=== PATIENT | male | born 1970 | race Caucasian/White ===

== ENCOUNTER → 2018-03-27 08:33 | Outpatient (CLI) | payer OTHER, SELFPAY ==
[2018-03-27 09:14] LABS: Alanine Aminotransferase 64 IU/L (21-72); Albumin 4.4 g/dL (3.5-5.0); Albumin Globulin Ratio 1.7 (1.0-2.8); Alkaline Phosphatase 105 U/L (38-126); Aspartate Aminotransferase 43 IU/L (17-59); BUN Creatinine Ratio 18.6 (6-22); Bilirubin Total 0.6 mg/dL (0.2-1.3); Blood Urea Nitrogen 13 mg/dL (9-20); Calcium 9.2 mg/dL (8.4-10.2); Carbon Dioxide 28 mmol/L (22-32); Chloride 103 mmol/L (98-107); Cholesterol 149 mg/dL (140-199); Estimated Glomerular Filt Rate > 60.0 mL/min (>60); Globulin 2.6 g/dL (1.7-4.1); Glucose 102 mg/dL (70-100); HDL Cholesterol 41 mg/dL (40-60); HEMOLYSIS < 15 (0-50); LDL Cholesterol Calculated 85 mg/dL (<100); Potassium 4.5 mmol/L (3.4-5.1); Sodium 141 mmol/L (137-145); Triglycerides 113 mg/dL (35-150)
[2018-03-27 10:05] LABS: Creatinine Urine Random 114.4 mg/dL
[2018-03-27 10:10] LABS: Microalbumi Creatinin Ratio Ur 5.2 ug/mg CR (<30); Microalbumin Urine Random 0.6 mg/dL (0-1.6)
== END ==
PROVIDERS: Physician Assistant; Visit Provider Physician Assistant
DX: I10 Essential (primary) hypertension (principal)
CPT/HCPCS: 36415; 80053; 80061; 82043; 82570

== ENCOUNTER → 2019-04-26 07:11 | Outpatient (CLI) | payer OTHER, SELFPAY ==
[2019-04-26 08:29] LABS: Alanine Aminotransferase 59 IU/L (<50); Albumin 4.4 g/dL (3.5-5.0); Albumin Globulin Ratio 1.6 (1.0-2.8); Alkaline Phosphatase 120 U/L (38-126); Aspartate Aminotransferase 41 IU/L (17-59); BUN Creatinine Ratio 17.1 (6-22); Bilirubin Total 0.6 mg/dL (0.2-1.3); Blood Urea Nitrogen 12 mg/dL (9-20); Calcium 9.1 mg/dL (8.4-10.2); Carbon Dioxide 30 mmol/L (22-32); Chloride 101 mmol/L (98-107); Cholesterol 160 mg/dL (140-199); Estimated Glomerular Filt Rate > 60.0 mL/min (>60); Globulin 2.8 g/dL (1.7-4.1); Glucose 107 mg/dL (70-100); HDL Cholesterol 36 mg/dL (40-60); HEMOLYSIS < 15 (0-50); LDL Cholesterol Calculated 82 mg/dL (<100); Potassium 4.3 mmol/L (3.4-5.1); Sodium 139 mmol/L (137-145); Total Protein 7.2 g/dL (6.3-8.2); Triglycerides 208 mg/dL (35-150)
[2019-04-26 09:01] LABS: Creatinine Urine Random 138.8 mg/dL
[2019-04-26 09:06] LABS: Microalbumi Creatinin Ratio Ur 14.4 ug/mg CR (<30)
== END ==
PROVIDERS: PCP Physician Assistant; Referring Provider Physician Assistant; Visit Provider Physician Assistant
DX: E78.5 Hyperlipidemia, unspecified (principal); I10 Essential (primary) hypertension
CPT/HCPCS: 36415; 80053; 80061; 82043; 82570

== ENCOUNTER → 2019-12-01 11:42 | Outpatient (CLI) | payer OTHER, SELFPAY ==
[2019-12-01 13:36] LABS: Alanine Aminotransferase 40 IU/L (<50); Albumin 4.2 g/dL (3.5-5.0); Albumin Globulin Ratio 1.4 (1.0-2.8); Alkaline Phosphatase 140 U/L (38-126); Aspartate Aminotransferase 33 IU/L (17-59); BUN Creatinine Ratio 15.9 (6-22); Bilirubin Total 0.5 mg/dL (0.2-1.3); Blood Urea Nitrogen 11 mg/dL (9-20); Calcium 8.8 mg/dL (8.4-10.2); Carbon Dioxide 28 mmol/L (22-32); Chloride 103 mmol/L (98-107); Cholesterol 132 mg/dL (140-199); Estimated Glomerular Filt Rate > 60.0 mL/min (>60); Globulin 2.9 g/dL (1.7-4.1); Glucose 97 mg/dL (70-100); HDL Cholesterol 32 mg/dL (40-60); HEMOLYSIS 20 (0-50); LDL Cholesterol Calculated 63 mg/dL (<100); Sodium 139 mmol/L (137-145); Total Protein 7.1 g/dL (6.3-8.2); Triglycerides 187 mg/dL (35-150)
== END ==
PROVIDERS: PCP Registered Nurse; Referring Provider Registered Nurse; Visit Provider Registered Nurse
DX: E78.5 Hyperlipidemia, unspecified (principal); I10 Essential (primary) hypertension
CPT/HCPCS: 36415; 80053; 80061

== ENCOUNTER 2019-12-04 17:00 | Emergency (ER) | payer OTHER, SELFPAY ==
[2019-12-04 17:04] VITALS: BP 194/77; PULSE 116; RESP 24; TEMP 37.2; O2SAT 97
--- NOTE | 2019-12-04 18:20 | ED.SKABFB ---
HPI - Skin/Abscess/Foreign Bdy General Chief complaint: Skin/Abscess/Foreign Body Stated complaint: CYST INFECTION ON BUTTOCKS Time Seen by Provider: 12/04/19 18:03 Source: patient Mode of arrival: Ambulatory Limitations: no limitations History of Present Illness HPI narrative: 49-year-old male with prior history of multiple pilonidal cysts needing both incision and drainages and surgical excision here for evaluation of a couple days of worsening pain in the same areas where he has had these issues in the past. He states that it feels just like his prior issues of pilonidal cyst. He went to his primary doctor who told him that they would not drain this cyst in the office and advised that he go to the walk-in clinic. He then came to the emergency department. Denies fever. Has had some chills. Has had redness spread down the back of his left leg. No problems with bowel movements. No urinary symptoms. Related Data Home Medications Medication Instructions Recorded Confirmed multivitamin 1 tab PO QAM 04/17/18 12/04/19 Previous Rx's Medication Instructions Recorded atorvastatin 40 mg tablet 40 mg PO HS #90 tab 11/12/19 metoprolol succinate 25 mg 25 mg PO QDAY #90 tab 11/12/19 tablet,extended release 24 hr clindamycin HCl 300 mg PO Q6H 10 Days #40 cap 12/04/19 hydrocodone-acetaminophen [Leonard] 1 tab PO Q4-6H PRN #10 tab 12/04/19 Allergies Allergy/AdvReac Type Severity Reaction Status Date / Time Penicillins [PENICILLINS] Allergy Severe ALMOST Verified 12/04/19 16:31 Review of Systems Constitutional Constitutional: Reports fever(s) (Subjective) Cardiovascular Cardiovascular: Denies chest pain and Denies dyspnea Respiratory Respiratory: Denies dyspnea Gastrointestinal Gastrointestinal: Denies change in bowel habits Genitourinary Genitourinary: Denies dysuria Genitourinary: Denies dysuria Integumentary/Breasts Comments: Cyst over buttocks Neurologic Neurologic: Denies behavioral changes and Denies confusion Psychiatric Psychiatric: Denies behavioral changes and Denies confusion Patient History Medical History (Updated 12/05/19 @ 00:51 by Simon Shaikh DO) Essential (primary) hypertension (Inactive) Hyperlipidemia (Inactive) Obesity (BMI 30-39.9) (Inactive) Obstructive sleep apnea (Inactive) Pneumonia (Acute) Screening for malignant neoplasm of colon (Inactive) Social History Smoking Status: Current every day smoker Tobacco: How many years used: 36 quit status: considering quitting second hand exposure: Yes (yes, my girlfriend and a lot of people I know smoke.) alcohol intake: current (a beer every once in a while. I have a couple of drinks of vodka and 7/up every night.) substance use type: does not use Smoking Status: Current every day smoker Exam Initial Vital Signs Initial Vital Signs: Vital Signs Temperature 98.9 F 12/04/19 17:04 Pulse Rate 116 H 12/04/19 17:04 Respiratory Rate 24 12/04/19 17:04 Blood Pressure 194/77 H 12/04/19 17:04 Pulse Oximetry 97 12/04/19 17:04 Const General: cooperative Limitations: mental status not altered HENMT Head: normal to inspection and normocephalic Resp Effort & Inspection: normal respiratory effort Cardio Rate: regular rate GI Inspection: non-distended Skin Other: Patient with a large area of induration both superior and left lateral portion of the top of the intergluteal cleft. Has redness and induration spreading down the left posterior thigh. Extrem General: normal to inspection and capillary refill normal Psych Appearance: grossly normal and well kempt Procedures Abscess I/D I&D #1: Site: other (Pilonidal) Side (if applicable): left Local Anesthetic: lidocaine 1% and with epi Amount of anesthesia used (mL): 10 Technique: incised with #11 blade Irrigation: No Packing used?: none Complications: pain Course Orders Ordered: ED Orders 12/04/19 18:20 CT pelvis w con Stat 12/04/19 18:30 Basic Metabolic Panel Stat Complete Blood Count AUTO DIFF Stat Discontinued Medications Hydrocodone Bitart/Acetaminophen (Vicodin 5/325 Prepack) 1 bottle MISC SEEINSTR ONE Stop: 12/04/19 20:09 Last Admin: 12/04/19 20:24 Dose: 1 bottle Documented by: DANN Sodium Chloride (Normal Saline 0.9%) 1,000 mls @ 1,000 mls/hr IV BOLUS ONE Stop: 12/04/19 19:19 Last Infusion: 12/04/19 20:07 Dose: 0 mls/hr Documented by: Admin: 12/04/19 18:53 Dose: 1,000 mls/hr Documented by: DEANA Clindamycin Phosphate (Cleocin) 900 mg in 50 mls @ 50 mls/hr IV NOW ONE Stop: 12/04/19 19:21 Last Infusion: 12/04/19 20:08 Dose: 0 mls/hr Documented by: Admin: 12/04/19 18:52 Dose: 50 mls/hr Documented by: DEANA Lidocaine/Epinephrine (Xylocaine 1% W/Epi) 1 ml SUBCUT NOW ONE Stop: 12/04/19 19:39 Last Admin: 12/04/19 20:24 Dose: 1 ml Documented by: DANN Vital Signs Vital signs: Vital Signs - 8 hr 12/04/19 17:04 12/04/19 20:28 Temperature 98.9 F Pulse Rate 116 H 84 Respiratory Rate 24 20 Blood Pressure 194/77 H 146/76 H Pulse Oximetry 97 98 MDM - Skin/Abscess/Foreign Bdy Lab Data Attestation: I reviewed the patient's lab results. Result diagrams: 12/04/19 18:30 12/04/19 18:30 Labs: Lab Results 12/04/19 12/04/19 Range/Units 18:30 18:30 WBC 9.5 (4.5-11.0) X10^3/uL RBC 5.12 (4.5-5.9) X10^6/uL Hgb 15.2 (13.5-17.5) g/dL Hct 44.7 (41-53) % MCV 87.2 (80-100) fL MCH 29.6 (26-34) PG MCHC 34.0 (30-36) % RDW 13.7 (11.6-14.8) % Plt Count 241 (150-400) X10^3/uL Neut % (Auto) 69.8 (50-75) % Lymph % (Auto) 18.9 L (25-40) % Deuel % (Auto) 8.4 (3-14) % Eos % (Auto) 2.1 (2-4) % Baso % (Auto) 0.8 (0-2) % Neut # (Auto) 6600 (1441-0325) /uL Lymph # (Auto) 1800 (4233-6148) /uL Deuel # (Auto) 800 (0-900) /uL Eos # (Auto) 200 (0-450) /uL Baso # (Auto) 100 (0-100) /uL Sodium 139 (137-145) mmol/L Potassium 3.7 (3.4-5.1) mmol/L Chloride 101 (98-107) mmol/L Carbon Dioxide 29 (22-32) mmol/L BUN 12 (9-20) mg/dL Creatinine 0.79 (0.66-1.25) mg/dL Estimated GFR > 60.0 (>60) mL/min BUN/Creatinine Ratio 15.2 (6-22) Glucose 100 (70-100) mg/dL Calcium 9.0 (8.4-10.2) mg/dL Imaging Data CT pelvis: Radiologist's Impression: [address] [address] [address] Scan Report Signed Patient: Harshil Butler R#: [id number] : 1970Acct:[id number] Age/Sex: 49 / MDate of Service: 12/04/19 Loc: ED Accession Number: [id number] Procedure: CT pelvis w con Ordering Provider: Simon Shaikh D.O. PROCEDURE: CT PELVIS W CON INDICATIONS: eval for perianal/rectal abscess TECHNIQUE: After the administration of intravenous contrast, 5 mm thick sections acquired from the iliac crests to the symphysis. 5 mm coronal and sagittal reformats were acquired. For radiation dose reduction, the following was used: automated exposure control, adjustment of mA and/or kV according to patient size. COMPARISON: None. FINDINGS: Image quality: Excellent. Peritoneum and bowel: Bowel loops demonstrate normal wall thickness and caliber. No free fluid or air. Genitourinary: Bladder wall thickness is normal. Nodes and vessels: No iliac, pelvic, or inguinal adenopathy by size criteria. Iliac vessels demonstrate normal size and enhancement. Bones: No suspicious bony lesions. Miscellaneous: There is a 1.6 x 3.2 cm complex subcutaneous fluid collection in the medial aspect of the left buttock, consistent with a small phlegmon or abscess. There is no drainable fluid collection. There is soft tissue stranding in the left buttock consistent with cellulitis. A small 0.9 x 1.9 cm subcutaneous nodule is seen in the lateral aspect of the left thigh. Mild stranding is present in the same area. A 1.4 x 2.4 cm subcutaneous nodule is seen in the right buttock, which could represent a pilonidal cyst, phlegmon or abscess. There are bilateral fat containing inguinal hernias. IMPRESSION: 1. A 1.6 x 3.2 cm phlegmon or abscess in the left buttock. 2. Cellulitis of the left buttock. 3. A small 0.9 x 1.9 cm subcutaneous nodule is seen in the lateral aspect of the left thigh. Mild stranding is present in the same area. This could represent another small phlegmon or early abscess. 4. A 1.4 x 2.4 cm subcutaneous nodule is seen in the right buttock, most likely representimg a pilonidal cyst. No soft tissue stranding in the area. 5. Bilateral fat containing inguinal hernias. Dictated by: Feliberto Macias M.D. on 12/04/2019 at 19:05 Approved by: Feliberto Macias M.D. on 12/04/2019 at 19:14 [facility] Narrative Medical decision making narrative: The CT scan does not show any signs of a deeper perirectal/perianal infection. His physical exam is consistent with a pilonidal cyst and cellulitis given the redness around the area. An incision and drainage was made in the area. He does have a consult already placed by his primary doctor to General surgery. He was given the phone number for the general surgeons with his discharge paperwork. Was given antibiotics. Will send home with antibiotics. He was given care instructions and return precautions. He expressed understanding and agreement. Discharge Plan Departure Patient Disposition: Home Clinical Impression: Infected pilonidal cyst Discharge Date/Time: 12/04/19 20:28 Instructions: DI for Pilonidal Cyst Drainage or Removal Activity Restrictions/Additional Instructions: Expect quite a bit of oozing from the area. This may require you to change the bandage on frequent basis. You can shower like normal. Take the pain medications as needed. Start taking the antibiotics tomorrow morning. Recommend that you contact the [facility] at [phone]. Also contact your primary provider for follow-up. Prescriptions: New hydrocodone-acetaminophen [Leonard] 5-325 mg tablet 1 tab PO Q4-6H PRN (Reason: pain) Qty: 10 RF: 0 clindamycin HCl 300 mg capsule 300 mg PO Q6H 10 Days Qty: 40 RF: 0 No Action multivitamin tablet 1 tab PO QAM RF: 0 atorvastatin 40 mg tablet 40 mg PO HS Qty: 90 RF: 1 metoprolol succinate [Toprol XL] 25 mg tablet extended release 24 hr 25 mg PO QDAY Qty: 90 RF: 1 Referrals: Jese Joseph ARNP [Primary Care Provider] -
[2019-12-04 18:41] LABS: Add Manual Diff / Slide Review NO; Basophils Absolute Auto 100 /uL (0-100); Basophils Percent Auto 0.8 % (0-2); Eosinophils Absolute Auto 200 /uL (0-450); Eosinophils Percent Auto 2.1 % (2-4); Hematocrit 44.7 % (41-53); Hemoglobin 15.2 g/dL (13.5-17.5); Lymphocytes Absolute Auto 1800 /uL (1100-4500); Lymphocytes Percent Auto 18.9 % (25-40); Mean Corpuscular Hemoglobin 29.6 PG (26-34); Mean Corpuscular Volume 87.2 fL (80-100); Monocytes Absolute Auto 800 /uL (0-900); Monocytes Percent Auto 8.4 % (3-14); Neutrophils Absolute Auto 6600 /uL (1500-7000); Neutrophils Percent Auto 69.8 % (50-75); Platelet Count 241 X10^3/uL (150-400); Red Blood Cell Count 5.12 X10^6/uL (4.5-5.9); Red Cell Distribution Width 13.7 % (11.6-14.8); White Blood Cell Count 9.5 X10^3/uL (4.5-11.0)
[2019-12-04] MEDS: CLINDAMYCIN 900 MG/50 ML PIGGYBACK 50 MG IV (18:52)
[2019-12-04 18:53] LABS: BUN Creatinine Ratio 15.2 (6-22); Blood Urea Nitrogen 12 mg/dL (9-20); Carbon Dioxide 29 mmol/L (22-32); Chloride 101 mmol/L (98-107); Estimated Glomerular Filt Rate > 60.0 mL/min (>60); Glucose 100 mg/dL (70-100); HEMOLYSIS 22 (0-50); Potassium 3.7 mmol/L (3.4-5.1); Sodium 139 mmol/L (137-145)
[2019-12-04] MEDS: SODIUM CHLORIDE 0.9% 1,000 ML 1000 ML IV (18:53)
[2019-12-04] MEDS: LIDOCAINE 1% W/EPI 1 ML SUBCUT (20:24)
[2019-12-04] MEDS: HYDROCODONE/ACET 5/325 PREPACK 1 BOTTLE MISC (20:24)
[2019-12-04 20:28] VITALS: BP 146/76; PULSE 84; RESP 20; O2SAT 98
== END 2019-12-04 20:28 | disposition home or self-care (01) ==
PROVIDERS: Emergency Provider Emergency Medicine; PCP Registered Nurse; Referring Provider Registered Nurse
DX: L05.91 Pilonidal cyst without abscess (principal); R50.9 Fever, unspecified
CPT/HCPCS: 10060; 36415; 72193; 80048; 85025; 96365; 99284

== ENCOUNTER → 2020-05-10 10:51 | Outpatient (CLI) | payer OTHER, SELFPAY ==
[2020-05-10 12:57] LABS: Cholesterol 167 mg/dL (140-199); HDL Cholesterol 33 mg/dL (40-60); LDL Cholesterol Calculated 89 mg/dL (<100); Triglycerides 227 mg/dL (35-150)
== END ==
PROVIDERS: PCP Registered Nurse; Referring Provider Registered Nurse; Visit Provider Registered Nurse
DX: E78.5 Hyperlipidemia, unspecified (principal)
CPT/HCPCS: 36415; 80061

== ENCOUNTER → 2020-12-06 08:52 | Outpatient (CLI) | payer OTHER, SELFPAY ==
[2020-12-06 10:42] LABS: Alanine Aminotransferase 42 IU/L (<50); Albumin 4.2 g/dL (3.5-5.0); Albumin Globulin Ratio 1.4 (1.0-2.8); Alkaline Phosphatase 116 U/L (38-126); Aspartate Aminotransferase 35 IU/L (17-59); BUN Creatinine Ratio 16.4 (6-22); Bilirubin Total 0.6 mg/dL (0.2-1.3); Blood Urea Nitrogen 11 mg/dL (9-20); Carbon Dioxide 31 mmol/L (22-32); Chloride 105 mmol/L (98-107); Cholesterol 153 mg/dL (140-199); Estimated Glomerular Filt Rate > 60.0 mL/min (>60); Globulin 2.9 g/dL (1.7-4.1); Glucose 109 mg/dL (70-100); HDL Cholesterol 39 mg/dL (40-60); HEMOLYSIS 16 (0-50); LDL Cholesterol Calculated 90 mg/dL (<100); Potassium 4.2 mmol/L (3.4-5.1); Sodium 140 mmol/L (137-145); Total Protein 7.1 g/dL (6.3-8.2); Triglycerides 119 mg/dL (35-150)
== END ==
PROVIDERS: PCP Registered Nurse; Referring Provider Registered Nurse; Visit Provider Registered Nurse
DX: I10 Essential (primary) hypertension (principal); E78.5 Hyperlipidemia, unspecified
CPT/HCPCS: 36415; 80053; 80061

== ENCOUNTER → 2021-05-02 12:26 | Outpatient (CLI) | payer OTHER, SELFPAY ==
--- NOTE | 2021-05-02 12:27 | DI.RAD.S_ITS ---
PROCEDURE: XR CHEST 2V INDICATIONS: Coughing TECHNIQUE: 2 views of the chest were acquired. COMPARISON: None. FINDINGS: Surgical changes and devices: None. Lungs and pleura: Lungs are clear. No pleural effusions or pneumothorax. Mediastinum: Mediastinal contours are normal. Heart size is normal. Bones and chest wall: No suspicious bony abnormalities. Soft tissues appear unremarkable. IMPRESSION: Normal two view chest x-ray Approved by: Juni Nguyen M.D. on 05/02/2021 at 13:02
[2021-05-02 14:28] LABS: Alanine Aminotransferase 49 IU/L (<50); Albumin 4.2 g/dL (3.5-5.0); Albumin Globulin Ratio 1.6 (1.0-2.8); Alkaline Phosphatase 113 U/L (38-126); Aspartate Aminotransferase 41 IU/L (17-59); BUN Creatinine Ratio 11.4 (6-22); Bilirubin Total 0.8 mg/dL (0.2-1.3); Blood Urea Nitrogen 8 mg/dL (9-20); Calcium 9.2 mg/dL (8.4-10.2); Carbon Dioxide 31 mmol/L (22-32); Chloride 104 mmol/L (98-107); Estimated Glomerular Filt Rate > 60.0 mL/min (>60); Globulin 2.7 g/dL (1.7-4.1); Glucose 120 mg/dL (70-100); HEMOLYSIS < 15 (0-50); Potassium 3.9 mmol/L (3.4-5.1); Sodium 138 mmol/L (137-145); Total Protein 6.9 g/dL (6.3-8.2)
== END ==
PROVIDERS: PCP Registered Nurse; Referring Provider Registered Nurse; Visit Provider Registered Nurse
DX: F17.200 Nicotine dependence, unspecified, uncomplicated (principal); R05.3 Chronic cough; I10 Essential (primary) hypertension
CPT/HCPCS: 36415; 71046; 80053

== ENCOUNTER → 2021-09-05 12:05 | Outpatient (CLI) | payer OTHER, SELFPAY ==
[2021-09-05 12:48] LABS: Creatinine Urine Random 151.7 mg/dL
[2021-09-05 12:53] LABS: Microalbumi Creatinin Ratio Ur 13.1 ug/mg CR (<30)
== END ==
PROVIDERS: PCP Pediatrics; Referring Provider Pediatrics; Visit Provider Pediatrics
DX: I10 Essential (primary) hypertension (principal)
CPT/HCPCS: 82043; 82570

== ENCOUNTER → 2022-06-26 11:00 | Outpatient (CLI) | payer OTHER, SELFPAY ==
[2022-06-26 11:30] LABS: Alanine Aminotransferase 59 IU/L (<50); Albumin 4.2 g/dL (3.5-5.0); Albumin Globulin Ratio 1.5 (1.0-2.8); Alkaline Phosphatase 108 U/L (38-126); Aspartate Aminotransferase 44 IU/L (17-59); Bilirubin Total 0.7 mg/dL (0.2-1.3); Blood Urea Nitrogen 9 mg/dL (9-20); Carbon Dioxide 28 mmol/L (22-32); Chloride 102 mmol/L (98-107); Cholesterol 169 mg/dL (140-199); Estimated Glomerular Filt Rate > 60 mL/min (>60); Globulin 2.8 g/dL (1.7-4.1); Glucose 102 mg/dL (70-100); HDL Cholesterol 43 mg/dL (40-60); HEMOLYSIS < 15 (0-50); LDL Cholesterol Calculated 96 mg/dL (<100); Potassium 4.4 mmol/L (3.4-5.1); Sodium 139 mmol/L (137-145); Triglycerides 149 mg/dL (35-150)
[2022-06-26 12:00] LABS: Prostate Specific Antigen Scrn 0.891 ng/mL (0.1-4.0)
[2022-06-27 06:36] LABS: Labcorp Hemoglobin (Hb) A1c 5.8 % (4.8-5.6)
== END ==
PROVIDERS: PCP Family Medicine; Referring Provider Family Medicine; Visit Provider Family Medicine
DX: Z00.00 Encounter for general adult medical examination without abnormal findings (principal); E78.5 Hyperlipidemia, unspecified; I10 Essential (primary) hypertension; R73.9 Hyperglycemia, unspecified; Z12.5 Encounter for screening for malignant neoplasm of prostate
CPT/HCPCS: 36415; 80053; 80061; 83036; G0103

== ENCOUNTER → 2023-01-14 14:13 | Outpatient (CLI) | payer OTHER, SELFPAY ==
[2023-01-14 15:40] LABS: HEMOLYSIS < 15 (0-50); Potassium 4.1 mmol/L (3.4-5.1)
[2023-01-14 15:41] LABS: Alanine Aminotransferase 72 IU/L (<50); Albumin 2.9 g/dL (3.5-5.0); Albumin Globulin Ratio 0.7 (1.0-2.8); Alkaline Phosphatase 85 U/L (38-126); Aspartate Aminotransferase 53 IU/L (17-59); BUN Creatinine Ratio 15.9 (6-22); Bilirubin Total 0.6 mg/dL (0.2-1.3); Blood Urea Nitrogen 10 mg/dL (9-20); Calcium 9.6 mg/dL (8.4-10.2); Carbon Dioxide 26 mmol/L (22-32); Chloride 102 mmol/L (98-107); Estimated Glomerular Filt Rate > 60 mL/min (>60); Globulin 4.1 g/dL (1.7-4.1); Glucose 95 mg/dL (70-100); Sodium 137 mmol/L (137-145)
[2023-01-14 16:48] LABS: Hemoglobin A1C% w Est Avg Glu 5.8 % (4.0-6.0)
[2023-01-17 17:06] LABS: Creatinine Urine Random 50.7 mg/dL
[2023-01-17 17:19] LABS: Microalbumin Urine Random < 0.6 mg/dL (0-1.6)
== END ==
PROVIDERS: PCP Family Medicine; Referring Provider Family Medicine; Visit Provider Family Medicine
DX: E78.5 Hyperlipidemia, unspecified (principal); R74.01 Elevation of levels of liver transaminase levels; R73.03 Prediabetes; F10.90 Alcohol use, unspecified, uncomplicated; F17.200 Nicotine dependence, unspecified, uncomplicated; I10 Essential (primary) hypertension
CPT/HCPCS: 36415; 80053; 82043; 82570; 83036

== ENCOUNTER 2023-06-01 13:03 | Emergency (ER) | payer OTHER, SELFPAY ==
[2023-06-01] VITALS (14 sets, daily range): BP systolic 127–160; BP diastolic 78–96; PULSE 80–95; RESP 18–20; TEMP 36.5; O2SAT 93–98; BMI 36.5
--- NOTE | 2023-06-01 13:18 | DI.US.S_ITS ---
PROCEDURE: US SCROTUM INDICATIONS: LEFT TESTICLE SWELLING/PAIN/DRAINAGE X 1 MONTH TECHNIQUE: Real-time scanning was performed of the scrotum and testicles, with image documentation. Color and pulse Doppler interrogation was performed of both testicles. COMPARISON: None. FINDINGS: Right: Testicle measures 4 x 2.7 x 2.3 cm, and is heterogeneous in echotexture. There is increased arterial flow. Epididymis is normal in overall size and morphology. No hydrocele or varicoceles. Scrotal wall thickening measuring 7 mm. Left: Testicle measures 4.7 x 3.4 x 3 cm, and is heterogeneous in echotexture. There is increased arterial flow. Lateral to the testicle adjacent to the scrotal wall there is a complex thick walled fluid collection measuring 5 x 3 x 2.4 cm. Epididymis is normal in overall size and morphology. No hydrocele or varicoceles. Scrotal wall thickness measuring 10 mm. Doppler: Color and pulse Doppler demonstrate normal and symmetric arterial flow in both testicles. IMPRESSION: 1. Lateral to the left testicle adjacent to the scrotal wall there is a complex thick walled fluid collection with peripheral vascularity measuring 5 x 3 x 2.4 cm. Correlate with physical exam. Recommend sonographic follow-up to document resolution and rule out an underlying mass. 2. There is thickening of the bilateral scrotal hanna with heterogeneous appearance of the testicles and increased arterial flow, left greater than right. Findings are likely reactive. Dictated by: Yelena Munoz M.D. on 06/01/2023 at 14:13 Approved by: Yelena Munoz M.D. on 06/01/2023 at 14:33
--- NOTE | 2023-06-01 14:11 | ED_ITS ---
HPI - Male Genitourinary General Chief complaint: Urogenital-Male Stated complaint: lft testicle swelling and infection Time Seen by Provider: 06/01/23 13:31 Source: patient and family Mode of arrival: Ambulatory Limitations: no limitations History of Present Illness HPI Narrative: This is a 52-year-old male with history of hypertension, dyslipidemia, prediabetes who comes in with complaint about a month of left-sided scrotal swelling and pain with some drainage. Patient has been dressing it regularly in the shower. He states it stopped draining in the last couple days and has had increasing swelling and pain in the left side with redness of the scrotal sac. Patient states no fevers or chills. No chest pain abdominal pain. No shortness of breath. No nausea or vomiting. He has had no difficulties with urination, no discharge with urination. He states no issues with bowel movements. Pain does not radiate up into the abdomen. Patient states allergic to penicillin. Does use tobacco daily, occasional alcohol, no recreational drugs. Related Data Home Medications Medication Instructions Recorded Confirmed multivitamin 1 tab PO QAM 04/17/18 09/14/22 Previous Rx's Medication Instructions Recorded sildenafil 50 mg tablet (Viagra) 50 mg PO DAILY PRN sexual activity 12/01/20 #30 tabs atorvastatin 40 mg tablet 40 mg PO DAILY #30 tabs 07/16/22 losartan 50 mg tablet 50 mg PO DAILY #30 tabs 01/28/23 metformin 500 mg tablet 500 mg PO BIDWMEAL #60 tabs 01/28/23 metoprolol succinate 50 mg 50 mg PO DAILY #30 tabs 01/28/23 tablet,extended release 24 hr Allergies Allergy/AdvReac Type Severity Reaction Status Date / Time Penicillins [PENICILLINS] Allergy Severe ALMOST Verified 09/14/22 10:34 Review of Systems Review of Systems ROS Unobtainable: All systems reviewed & are unremarkable except as noted in HPI and below Patient History Medical History IBS (irritable bowel syndrome) Obesity (BMI 30-39.9) Screening for malignant neoplasm of colon Obstructive sleep apnea Essential (primary) hypertension Hyperlipidemia Social History Smoking Status: Current every day smoker Tobacco: How many years used: 36 quit status: considering quitting second hand exposure: Yes (yes, my girlfriend and a lot of people I know smoke.) alcohol intake: current (1-2 drinks per evening ) substance use type: does not use and marijuana (Teenage years, former ) Smoking Status: Current every day smoker tobacco type: cigarettes alcohol intake frequency: 0-2 drinks per day Substance Use Type: does not use Exam Narrative Exam Narrative: GENERAL: Alert and oriented x three, male in mild distress. HEENT: Head normocephalic, atraumatic, EOMI, pupils reactive, face symmetric, moist mucous membranes NECK: Supple, full range of motion CARDIOVASCULAR: Regular rate and rhythm without murmurs, rubs or gallops. RESPIRATORY: Breath sounds equal bilaterally, no wheezes rales or rhonchi. ABDOMEN: Soft, nontender. Normoactive bowel sounds all 4 quadrants. No guarding or rebound, rigidity, no mass : No CVA tenderness. Male: Normal penile exam, patient's left testicle is quite swollen, thickening of the scrotum with erythema and warmth. Is mildly tender to palpation, there is no clear lesion that is open or draining that I can see. Patient indicates it was little bit more posterior there is no active draining or opening, no penile discharge or lesions, cremasteric reflex intact, no inguinal hernias noted. EXTREMITIES: Normal range of motion, no clubbing or edema. Neurovascularly intact NEUROLOGICAL: Cranial nerves II through XII grossly intact. Moving all extremities SKIN: Warm, dry, no petechiae, no rashes or lesions. Initial Vital Signs Initial Vital Signs: Vital Signs Temperature 97.7 F 06/01/23 13:05 Pulse Rate 95 H 06/01/23 13:05 Respiratory Rate 18 06/01/23 13:05 Blood Pressure 160/89 H 06/01/23 13:05 Pulse Oximetry 98 06/01/23 13:05 Oxygen Delivery Method Room Air 06/01/23 13:05 Course Orders Ordered: ED Orders 06/01/23 13:18 US scrotum Stat 06/01/23 14:28 Blood Culture Stat CBC Auto Diff [Complete Blood Count AUTO DIFF] Stat CMP [Comprehensive Metabolic Panel] Stat Lactate (Lactic Acid) Stat Procalcitonin Stat Discontinued Medications Levofloxacin (Levaquin) 750 mg in 150 mls @ 100 mls/hr IV NOW ONE Stop: 06/01/23 15:40 Last Infusion: 06/01/23 16:33 Dose: Infused Documented By: Admin: 06/01/23 14:49 Dose: 100 mls/hr Documented By: KEVIN Sodium Chloride (Normal Saline 0.9%) 1,000 mls @ 1,000 mls/hr IV BOLUS ONE Stop: 06/01/23 15:12 Last Infusion: 06/01/23 16:33 Dose: Infused Documented By: Admin: 06/01/23 14:48 Dose: 1,000 mls/hr Documented By: KEVIN Clindamycin Phosphate (Cleocin) 900 mg in 50 mls @ 50 mls/hr IV NOW ONE Stop: 06/01/23 17:24 Last Infusion: 06/01/23 17:31 Dose: Infused Documented By: Admin: 06/01/23 16:33 Dose: 50 mls/hr Documented By: ARNEL Vital Signs Vital signs: Vital Signs - 8 hr 06/01/23 13:05 06/01/23 13:30 06/01/23 13:31 Temperature 97.7 F Pulse Rate 95 H 90 Respiratory Rate 18 Blood Pressure 160/89 H 153/85 H Pulse Oximetry 98 94 Oxygen Delivery Method Room Air 06/01/23 13:45 06/01/23 14:00 06/01/23 14:00 Temperature Pulse Rate 83 87 87 Respiratory Rate Blood Pressure 142/83 H Pulse Oximetry 95 93 93 Oxygen Delivery Method Room Air Room Air Room Air 06/01/23 14:00 06/01/23 14:30 06/01/23 14:53 Temperature Pulse Rate 83 80 Respiratory Rate Blood Pressure 142/83 H Pulse Oximetry 93 94 Oxygen Delivery Method 06/01/23 14:53 06/01/23 15:00 06/01/23 15:00 Temperature Pulse Rate 82 82 Respiratory Rate 18 Blood Pressure 151/96 H 155/95 H Pulse Oximetry 96 96 Oxygen Delivery Method Room Air Room Air 06/01/23 15:00 06/01/23 15:30 06/01/23 15:30 Temperature Pulse Rate 81 81 Respiratory Rate Blood Pressure 155/95 H 156/80 H Pulse Oximetry 95 95 Oxygen Delivery Method Room Air 06/01/23 15:30 06/01/23 15:59 06/01/23 15:59 Temperature Pulse Rate 81 Respiratory Rate Blood Pressure 156/80 H 140/88 Pulse Oximetry 98 Oxygen Delivery Method 06/01/23 16:00 06/01/23 16:00 06/01/23 16:30 Temperature Pulse Rate 81 83 Respiratory Rate Blood Pressure 156/87 H Pulse Oximetry 98 95 Oxygen Delivery Method Room Air 06/01/23 16:30 06/01/23 17:00 06/01/23 17:00 Temperature Pulse Rate 83 Respiratory Rate Blood Pressure 127/81 135/78 Pulse Oximetry 96 Oxygen Delivery Method 06/01/23 17:36 Temperature Pulse Rate 83 Respiratory Rate 20 Blood Pressure 135/78 Pulse Oximetry 96 Oxygen Delivery Method Room Air MDM - Male Genitourinary Lab Data 06/01/23 14:28 06/01/23 14:28 Labs: Lab Results 06/01/23 Range/Units 14:28 WBC 12.6 H (4.5-11.0) X10^3/uL RBC 4.97 (4.5-5.9) X10^6/uL Hgb 14.4 (13.5-17.5) g/dL Hct 43.0 (41-53) % MCV 86.5 (80-100) fL MCH 28.9 (26-34) PG MCHC 33.3 (30-36) % RDW 13.9 (11.6-14.8) % Plt Count 241 (150-400) X10^3/uL Neut % (Auto) 76.7 H (50-75) % Lymph % (Auto) 14.0 L (25-40) % Stanton % (Auto) 7.9 (3-14) % Eos % (Auto) 1.1 L (2-4) % Baso % (Auto) 0.3 (0-2) % Neut # (Auto) 9700 H (2895-6543) /uL Lymph # (Auto) 1800 (8311-2458) /uL Stanton # (Auto) 1000 H (0-900) /uL Eos # (Auto) 100 (0-450) /uL Baso # (Auto) 0 (0-100) /uL Sodium 138 (137-145) mmol/L Potassium 3.6 (3.4-5.1) mmol/L Chloride 104 (98-107) mmol/L Carbon Dioxide 28 (22-32) mmol/L BUN 8 L (9-20) mg/dL Creatinine 0.58 L (0.66-1.25) mg/dL Estimated GFR > 60 (>60) mL/min BUN/Creatinine Ratio 13.8 (6-22) Glucose 99 (70-100) mg/dL Lactate 1.0 (0.7-2.1) mmol/L Calcium 9.2 (8.4-10.2) mg/dL Total Bilirubin 1.0 (0.2-1.3) mg/dL AST 30 (17-59) IU/L ALT 48 (<50) IU/L Alkaline Phosphatase 113 (38-126) U/L Total Protein 7.2 (6.3-8.2) g/dL Albumin 4.2 (3.5-5.0) g/dL Globulin 3.0 (1.7-4.1) g/dL Albumin/Globulin Ratio 1.4 (1.0-2.8) Procalcitonin 0.04 (<0.5) ng/mL Urine Dip Bedside Urine Glucose Negative Bedside Urine Bilirubin - Negative Bedside Urine Ketone - Negative Urine Specific [place] 1.015 Bedside Urine Occult Blood - Negative Bedside Urine pH 7.0 Bedside Urine Protein - Negative Bedside Urine Urobilinogen - Negative Bedside Urine Nitrite - Negative Bedside Urine Leukocytes - Negative Esterase Imaging Data scrotal US: Radiologist's Impression: [place] [address] Ultrasound Report Signed Patient: Harshil Butler MR#: [id number] : 1970 Acct:[id number] Age/Sex: 52 / M Date of Service: 06/01/23 Loc: ED Accession Number: [id number] Procedure: US scrotum Ordering Provider: Fanny Voss D.O. PROCEDURE: US SCROTUM INDICATIONS: LEFT TESTICLE SWELLING/PAIN/DRAINAGE X 1 MONTH TECHNIQUE: Real-time scanning was performed of the scrotum and testicles, with image documentation. Color and pulse Doppler interrogation was performed of both testicles. COMPARISON: None. FINDINGS: Right: Testicle measures 4 x 2.7 x 2.3 cm, and is heterogeneous in echotexture. There is increased arterial flow. Epididymis is normal in overall size and morphology. No hydrocele or varicoceles. Scrotal wall thickening measuring 7 mm. Left: Testicle measures 4.7 x 3.4 x 3 cm, and is heterogeneous in echotexture. There is increased arterial flow. Lateral to the testicle adjacent to the scrotal wall there is a complex thick walled fluid collection measuring 5 x 3 x 2.4 cm. Epididymis is normal in overall size and morphology. No hydrocele or varicoceles. Scrotal wall thickness measuring 10 mm. Doppler: Color and pulse Doppler demonstrate normal and symmetric arterial flow in both testicles. IMPRESSION: 1. Lateral to the left testicle adjacent to the scrotal wall there is a complex thick walled fluid collection with peripheral vascularity measuring 5 x 3 x 2.4 cm. Correlate with physical exam. Recommend sonographic follow-up to document resolution and rule out an underlying mass. 2. There is thickening of the bilateral scrotal hanna with heterogeneous appearance of the testicles and increased arterial flow, left greater than right. Findings are likely reactive. Dictated by: Yelena Munoz M.D. on 06/01/2023 at 14:13 Approved by: Yelena Munoz M.D. on 06/01/2023 at 14:33 [facility] Narrative Medical decision making narrative: 52-year-old male with history of hypertension, dyslipidemia, prediabetes with a BMI of 36 and tobacco use who presents with complaint of left scrotal pain for the last month but had some drainage and then stopped in the became very large and indurated and increasing pain. Patient is tender but not exquisitely so on exam. Has quite a bit of swelling of the last scrotum. Patient does not appear septic labs are overall appropriate does have a white count of 12, predominance of neutrophils. Patient's electrolytes are otherwise normal BUN is 8 creatinine is 0.58, lactate negative at 1- procalcitonin with negative LFTs. Cultures were obtained. Urine was negative for leuks nitrates but was sent for culture. Spoke with Dr. Kc, Urology for [facility]. Would recommend incision and drainage with the surgeon does have high-risk factors for Keaton's does not appear to have that at this time by my examination or hers. Would recommend adding clindamycin to Levaquin. Reviewed patient's BMI, glucose today is 99. She states if at their facility would take to the OR to drain but would be very hard to get him transferred to [facility]. We will call around to other facilities to see about availability. Spoke with Dr. Saeed Urology at [facility]. Asked if we will speak with General surgery if they would be willing if not would accept for transfer to ED she does feel this can be done at bedside. Spoke with Dr. Waters, general surgery at [facility] defers procedure to Urology. Recontacted Dr. Saeed, she will see patient in the ED at [facility]. We will coordinate transfer and make sure images has been sent. Spoke with Dr. Ramon, ED physician at [facility] accepts for transfer for ED to ED. Dr. Saeed plans for bedside drainage in Ed. Discussed patient has been very stable he is comfortable with private auto transfer. We will discuss with patient to see if they have good transportation. Patient has had a white count but has not been septic and otherwise appears stable. Discussed with patient you would rather transfer by private auto. Last intake was at 9:30 a.m. this morning discussed to continue with NPO status and no food or drink until seen in the ED. patient is to go directly to the ED from emergency department. Packet with transfer paperwork Discharge Plan Departure Patient Disposition: [facility] Clinical Impression: Abscess of scrotum Activity Restrictions/Additional Instructions: Go immediately to the emergency department at [facility]. They are aware that you should be arriving and will contact the urologist once you have arrived. The packet that you are provided to the emergency department with you. Do not eat or drink anything until you have been seen in the emergency department by Dr. Saeed. Prescriptions: No Action multivitamin tablet 1 tab PO QAM atorvastatin 40 mg tablet 40 mg PO DAILY Qty: 30 12RF losartan 50 mg tablet 50 mg PO DAILY Qty: 30 5RF metformin 500 mg tablet 500 mg PO BIDWMEAL Qty: 60 5RF Rx Instructions: TAKE WITH LARGEST MEALs OF DAY metoprolol succinate 50 mg tablet extended release 24 hr 50 mg PO DAILY Qty: 30 5RF sildenafil [Viagra] 50 mg tablet 50 mg PO DAILY PRN (Reason: sexual activity) Qty: 30 2RF Rx Instructions: administer 30 minutes to 4 hours before activity Referrals: Erin Molina DO [Primary Care Provider] -
--- NOTE | 2023-06-01 14:45 | PC.NURSE ---
Pt reports history of pilonidal cysts and has been attempting to care for a swollen mass on his left testicle for over a month. Pt reports taking showers and being able to squeeze out fluid durring the shower. He C/O painful swelling with pressure when he cannot get it to drain anymore. Pt states he tried taking a few leftover antibiotics from a previous cyst. Pt and spouse given education about antibiotic use and to take the full regimen, risks explained. Pt expressed understanding. Denies N/V, pain with urination. Pain increases with palpation or movement.
[2023-06-01 14:48] LABS: Add Manual Diff / Slide Review NO; Basophils Absolute Auto 0 /uL (0-100); Basophils Percent Auto 0.3 % (0-2); Eosinophils Absolute Auto 100 /uL (0-450); Eosinophils Percent Auto 1.1 % (2-4); Hemoglobin 14.4 g/dL (13.5-17.5); Lymphocytes Absolute Auto 1800 /uL (1100-4500); Mean Corpuscular HGB Conc 33.3 % (30-36); Mean Corpuscular Hemoglobin 28.9 PG (26-34); Mean Corpuscular Volume 86.5 fL (80-100); Monocytes Absolute Auto 1000 /uL (0-900); Monocytes Percent Auto 7.9 % (3-14); Neutrophils Absolute Auto 9700 /uL (1500-7000); Neutrophils Percent Auto 76.7 % (50-75); Platelet Count 241 X10^3/uL (150-400); Red Blood Cell Count 4.97 X10^6/uL (4.5-5.9); Red Cell Distribution Width 13.9 % (11.6-14.8); White Blood Cell Count 12.6 X10^3/uL (4.5-11.0)
[2023-06-01] MEDS: SODIUM CHLORIDE 0.9% 1,000 ML 1000 ML IV (14:48)
[2023-06-01] MEDS: levoFLOXacin 750 MG/150 ML PIGGYBACK 100 MG IV (14:49)
[2023-06-01 15:05] LABS: Alanine Aminotransferase 48 IU/L (<50); Albumin 4.2 g/dL (3.5-5.0); Albumin Globulin Ratio 1.4 (1.0-2.8); Alkaline Phosphatase 113 U/L (38-126); Aspartate Aminotransferase 30 IU/L (17-59); BUN Creatinine Ratio 13.8 (6-22); Blood Urea Nitrogen 8 mg/dL (9-20); Calcium 9.2 mg/dL (8.4-10.2); Carbon Dioxide 28 mmol/L (22-32); Chloride 104 mmol/L (98-107); Estimated Glomerular Filt Rate > 60 mL/min (>60); Glucose 99 mg/dL (70-100); HEMOLYSIS < 15 (0-50); Potassium 3.6 mmol/L (3.4-5.1); Sodium 138 mmol/L (137-145); Total Protein 7.2 g/dL (6.3-8.2)
[2023-06-01 15:22] LABS: Procalcitonin 0.04 ng/mL (<0.5)
[2023-06-01] MEDS: CLINDAMYCIN 900 MG/50 ML PIGGYBACK 50 MG IV (16:33)
== END 2023-06-01 17:38 | disposition short-term general hospital (02) ==
PROVIDERS: Emergency Provider Emergency Medicine; PCP Family Medicine
DX: N49.2 Inflammatory disorders of scrotum (principal)
CPT/HCPCS: 36415; 76870; 80053; 81003; 83605; 84145; 85025; 87040; 93975; 96365; 96366; 96367; 99284; J1956

== ENCOUNTER → 2023-06-18 12:17 | Outpatient (CLI) | payer OTHER, SELFPAY ==
[2023-06-18 13:36] LABS: Add Manual Diff / Slide Review NO; Basophils Absolute Auto 100 /uL (0-100); Basophils Percent Auto 0.9 % (0-2); Eosinophils Absolute Auto 200 /uL (0-450); Eosinophils Percent Auto 3.1 % (2-4); Hematocrit 45.2 % (41-53); Hemoglobin 15.1 g/dL (13.5-17.5); Lymphocytes Absolute Auto 2600 /uL (1100-4500); Lymphocytes Percent Auto 36.6 % (25-40); Mean Corpuscular HGB Conc 33.3 % (30-36); Mean Corpuscular Hemoglobin 29.3 PG (26-34); Mean Corpuscular Volume 88.1 fL (80-100); Monocytes Absolute Auto 700 /uL (0-900); Monocytes Percent Auto 9.2 % (3-14); Neutrophils Absolute Auto 3600 /uL (1500-7000); Neutrophils Percent Auto 50.2 % (50-75); Platelet Count 300 X10^3/uL (150-400); Red Blood Cell Count 5.13 X10^6/uL (4.5-5.9); Red Cell Distribution Width 13.5 % (11.6-14.8); White Blood Cell Count 7.1 X10^3/uL (4.5-11.0)
[2023-06-18 14:08] LABS: Alanine Aminotransferase 51 IU/L (<50); Albumin 4.3 g/dL (3.5-5.0); Albumin Globulin Ratio 1.7 (1.0-2.8); Alkaline Phosphatase 116 U/L (38-126); Aspartate Aminotransferase 33 IU/L (17-59); BUN Creatinine Ratio 14.3 (6-22); Bilirubin Total 0.5 mg/dL (0.2-1.3); Blood Urea Nitrogen 9 mg/dL (9-20); Calcium 9.3 mg/dL (8.4-10.2); Carbon Dioxide 26 mmol/L (22-32); Chloride 105 mmol/L (98-107); Cholesterol 157 mg/dL (140-199); Estimated Glomerular Filt Rate > 60 mL/min (>60); Globulin 2.6 g/dL (1.7-4.1); Glucose 92 mg/dL (70-100); HDL Cholesterol 35 mg/dL (40-60); HEMOLYSIS < 15 (0-50); LDL Cholesterol Calculated 95 mg/dL (<100); Potassium 4.3 mmol/L (3.4-5.1); Sodium 138 mmol/L (137-145); Total Protein 6.9 g/dL (6.3-8.2); Triglycerides 134 mg/dL (35-150)
[2023-06-18 14:12] LABS: Hemoglobin A1C% w Est Avg Glu 5.8 % (4.0-6.0); High Sensitivity CRP - Cardiac 1.6 mg/L (1.0-3.0)
[2023-06-18 14:39] LABS: Prostate Specific Antigen Scrn 2.02 ng/mL (0.1-4.0)
[2023-06-18 15:33] LABS: Creatinine Urine Random 95.2 mg/dL
[2023-06-18 15:37] LABS: Microalbumi Creatinin Ratio Ur 8.4 ug/mg CR (<30); Microalbumin Urine Random 0.8 mg/dL (0-1.6)
== END ==
PROVIDERS: PCP Family Medicine; Referring Provider Family Medicine; Visit Provider Family Medicine
DX: Z12.5 Encounter for screening for malignant neoplasm of prostate (principal); R74.01 Elevation of levels of liver transaminase levels; R73.03 Prediabetes; E78.5 Hyperlipidemia, unspecified; I10 Essential (primary) hypertension; F10.90 Alcohol use, unspecified, uncomplicated; F17.200 Nicotine dependence, unspecified, uncomplicated
CPT/HCPCS: 36415; 80053; 80061; 82043; 82570; 83036; 85025; 86140; G0103

== ENCOUNTER → 2023-11-23 15:46 | Outpatient (CLI) | payer OTHER, SELFPAY | PROVIDERS: PCP Family Medicine; Visit Provider Nurse Practitioner Family | DX: L05.01 Pilonidal cyst with abscess (principal) | CPT/HCPCS: 87070; 87075; 87077; 87205 ==

== ENCOUNTER → 2024-02-27 14:58 | Outpatient (CLI) | payer OTHER, SELFPAY ==
--- NOTE | 2024-02-27 15:00 | DI.NM.S_ITS ---
PROCEDURE: NM EXERCISE TREADMILL NON NUC COMPARISON: None INDICATIONS: Exertional angina FINDINGS: Rest ECG sinus rhythm 69 bpm. Mike protocol 10:13, maximum heart rate 144 bpm (87% peak predicted), peak blood pressure 160/106, 12.8 METS, HECTOR -5%. Exercise ECG sinus tachycardia, no ST segment changes, The patient reported undulating chest discomfort that seems to correlate with the PVCs. IMPRESSION: Low risk study for ischemia. No evidence of exercise-induced ST segment changes. There is note of frequent exercise-induced PVCs which seem to correlate with patient complaints of substernal chest discomfort. Normal hemodynamic response. Fair exercise capacity. Dictated by: Lety Hauser D.O. on 02/27/2024 at 16:48 Approved by: Lety Hauser D.O. on 02/27/2024 at 16:51
== END ==
LOC: NUCM 14:59
PROVIDERS: PCP Family Medicine; Referring Provider Family Medicine; Visit Provider Family Medicine
DX: I20.89 Other forms of angina pectoris (principal); I10 Essential (primary) hypertension; E78.5 Hyperlipidemia, unspecified
CPT/HCPCS: 93017

== ENCOUNTER → 2024-08-25 10:26 | Outpatient (CLI) | payer OTHER, SELFPAY ==
[2024-08-25 11:09] LABS: Hematocrit 54.2 % (41-53); Hemoglobin 18.3 g/dL (13.5-17.5); Mean Corpuscular HGB Conc 33.7 % (30-36); Mean Corpuscular Hemoglobin 30.8 PG (26-34); Mean Corpuscular Volume 91.3 fL (80-100); Platelet Count 191 X10^3/uL (150-400); Red Blood Cell Count 5.94 X10^6/uL (4.5-5.9); Red Cell Distribution Width 13.8 % (11.6-14.8); White Blood Cell Count 5.3 X10^3/uL (4.5-11.0)
[2024-08-25 11:26] LABS: Alanine Aminotransferase 116 IU/L (<50); Albumin 4.4 g/dL (3.5-5.0); Albumin Globulin Ratio 1.8 (1.0-2.8); Alkaline Phosphatase 115 U/L (38-126); Aspartate Aminotransferase 84 IU/L (17-59); BUN Creatinine Ratio 13.8 (6-22); Bilirubin Total 0.8 mg/dL (0.2-1.3); Blood Urea Nitrogen 9 mg/dL (9-20); Calcium 9.3 mg/dL (8.4-10.2); Carbon Dioxide 25 mmol/L (22-32); Chloride 104 mmol/L (98-107); Cholesterol 232 mg/dL (140-199); Estimated Glomerular Filt Rate > 60 mL/min (>60); Globulin 2.5 g/dL (1.7-4.1); Glucose 104 mg/dL (70-99); HDL Cholesterol 33 mg/dL (40-60); HEMOLYSIS 22 (0-50); LDL Cholesterol Calculated 159 mg/dL (<100); Potassium 4.5 mmol/L (3.4-5.1); Sodium 138 mmol/L (137-145); Total Protein 6.9 g/dL (6.3-8.2); Triglycerides 198 mg/dL (35-150)
[2024-08-25 11:27] LABS: Hemoglobin A1C% w Est Avg Glu 5.4 % (4.0-6.0)
[2024-08-25 11:52] LABS: Prostate Specific Antigen Scrn 1.47 ng/mL (0.1-4.0)
== END ==
PROVIDERS: PCP Family Medicine; Referring Provider Family Medicine; Visit Provider Family Medicine
DX: Z00.00 Encounter for general adult medical examination without abnormal findings (principal); E78.5 Hyperlipidemia, unspecified; I10 Essential (primary) hypertension; E88.810 Metabolic syndrome; E66.9 Obesity, unspecified; Z12.5 Encounter for screening for malignant neoplasm of prostate
CPT/HCPCS: 36415; 80053; 80061; 83036; 85027; G0103